=== PATIENT | female | born 1970 | race Caucasian/White ===

== ENCOUNTER 2019-04-10 14:33 | Emergency (ER) | payer MEDICAID ==
[~2019-04-10] VITALS: Ht 154.9 cm; Wt 57.6 kg
[2019-04-10 15:28] LABS: *BILIRUBIN,URIN NEGATIVE (NEGATIVE); *BLOOD, URINE TRACE (NEGATIVE); *CLARITY,URINE CLEAR (CLEAR); *COLOR,URINE YELLOW (YELLOW); *KETONES,URINE NEGATIVE (NEGATIVE); *UROBILINOGEN,URINE 0.2 E.U./dl (NORMAL); LEUKOCYTE ESTERASE ,URINE NEGATIVE (NEGATIVE); NITRITE, URINE NEGATIVE (NEGATIVE); PH,URINE 6.5 (5.0-8.0); UGLUCOSE NEGATIVE (NEGATIVE)
[2019-04-10 15:32] LABS: BACTERIA,URINE FEW /HPF (NONE SEEN); MUCUS,URINE MODERATE /LPF (0-FEW); RBC,URINE 0-3 /HPF (0-3); SQUAMOUS EPITHELIAL CELL,UR FEW /HPF (NONE SEEN); URINE AMORPHOUS PHOSPHATES FEW /HPF; WBC,URINE 0-3 /HPF (0-3)
--- NOTE | 2019-04-10 16:17 | NUR ---
[employer] air technician at bedside for MSE
--- NOTE | 2019-04-10 16:40 | NUR ---
Female harvest contractor JENNIFER Mays accompanied female patient for pelvic US.
--- NOTE | 2019-04-10 16:57 | NUR ---
Patient discharged to home in stable conditon. Written and verbal after care instructions given. Patient verbalizes understanding of instructions. Patient ambulated with stable gait.
[2019-04-10 17:05] VITALS: BP 135/82
== END 2019-04-10 17:05 | disposition home or self-care (01) ==
LOC: ER 14:41
DX: D25.9 Leiomyoma of uterus, unspecified (principal); Z90.49 Acquired absence of other specified parts of digestive tract
CPT/HCPCS: 76856; A4663

== ENCOUNTER 2019-08-16 17:26 | Emergency (ER) | payer MEDICAID ==
[~2019-08-16] VITALS: Ht 152.4 cm; Wt 58.1 kg
--- NOTE | 2019-08-16 17:38 | NUR ---
at bedside to examine patient.
[2019-08-16 17:58] LABS: BASOPHILS # (AUTO) 0.1 K/uL (0.0-8.0); EOSINOPHILS # (AUTO) 0.1 K/uL (0.0-0.7); EOSINOPHILS % (AUTO) 1.4 % (0.0-7.0); HEMATOCRIT 40.6 % (31.2-41.9); HEMOGLOBIN 13.6 g/dL (10.9-14.3); LYMPHOCYTES # (AUTO) 2.1 K/uL (20.0-40.0); LYMPHOCYTES % (AUTO) 27.9 % (20.5-51.5); MEAN CORPUSCULAR HGB CONC 34 g/dL (32.3-35.6); MEAN CORPUSCULAR VOLUME 89.8 fL (75.5-95.3); MONOCYTES # (AUTO) 0.7 K/uL (2.0-10.0); MONOCYTES % (AUTO) 8.7 % (0.0-11.0); NEUTROPHILS # (AUTO) 4.7 K/uL (1.8-8.9); PLATELET COUNT (AUTO) 306 K/uL (179-408); RED BLOOD CELL COUNT(AUTO) 4.52 MIL/uL (3.63-4.92); WHITE BLOOD COUNT (AUTO) 7.7 K/uL (3.8-11.8)
[2019-08-16 18:05] LABS: CREATININE 0.9 mg/dL (0.6-1.3); POTASSIUM 3.8 mmol/L (3.5-5.1)
[2019-08-16 18:11] LABS: BILIRUBIN,DIRECT 0.1 mg/dL (0.0-0.2); BILIRUBIN,TOTAL 0.2 mg/dL (0.2-1.0); TOTAL PROTEIN, SERUM 7.2 g/dL (6.4-8.2)
--- NOTE | 2019-08-16 18:24 | NUR ---
at bedside to update pt. on care plan.
--- NOTE | 2019-08-16 19:13 | NUR ---
Report given to incoming R.N.
--- NOTE | 2019-08-16 21:29 | NUR ---
Patient discharged to home in stable condition. Written and verbal after care instructions given. Patient verbalizes understanding of instructions. Stressed follow up or return to ER for worsening s/s.
[2019-08-16 21:30] VITALS: BP 140/88
== END 2019-08-16 21:30 | disposition home or self-care (01) ==
LOC: ER 17:29
DX: R10.13 Epigastric pain (principal); D25.9 Leiomyoma of uterus, unspecified
CPT/HCPCS: 36415; 70030-TC; 83690; 85025; 93005; A4663

== ENCOUNTER 2020-01-15 10:57 | Emergency (ER) | payer MEDICAID ==
[~2020-01-15] VITALS: Ht 152.4 cm; Wt 53.1 kg
--- NOTE | 2020-01-15 11:15 | NUR ---
DR George at the bedside for MSE.
[2020-01-15] MEDS ORDERED: OXYCODONE/APAP 5-325 MG TABLET ONE (11:26)
[2020-01-15] MEDS ORDERED: OXYCODONE/APAP 5-325 MG TABLET PO ONE (11:30)
[2020-01-15 12:21] VITALS: BP 140/81
== END 2020-01-15 12:23 | disposition home or self-care (01) ==
LOC: ER 10:57
DX: S16.1XXA Strain of muscle, fascia and tendon at neck level, initial encounter (principal); X58.XXXA Exposure to other specified factors, initial encounter; Y93.89 Activity, other specified; Y92.89 Other specified places as the place of occurrence of the external cause
CPT/HCPCS: A4663